=== PATIENT | male | born 1960 | race African-American/Black ===

== ENCOUNTER 2018-05-06 10:31 | Emergency (ER) | payer OTHER ==
[~2018-05-06] VITALS: Ht 185.4 cm; Wt 78.8 kg
[2018-05-06 10:36] VITALS: Ht 185.4 cm; Wt 78.8 kg
[2018-05-06] MEDS ORDERED: OLANZAPINE (ODT) 5 MG TAB ODT ONE (11:00)
[2018-05-06] MEDS ORDERED: QUET200T PO (11:16)
[2018-05-06] MEDS ORDERED: ARIP10TA12 PO (11:16)
--- NOTE | 2018-05-06 14:19 | ERD ---
ER Documentation Chief Complaint Chief Complaint FEELING DEPRESSED , HEARING VIOCES , HEADACHE , OUT OF MEDS , DENIES SI/HI HPI Patient is a 58-year-old male with schizophrenia who presents saying that he is hearing voices. He said that he has been hearing voices for years. He has not been taking his Seroquel or Abilify. He says "I should have stayed on them". He denies suicidal or homicidal ideation at this time. ROS All systems reviewed and are negative except as per history of present illness. Medications Home Meds Reported Medications Quetiapine Fumarate* (Seroquel*) 200 Mg Tablet, 200 MG PO HS, #30 TAB 05/06/18 Aripiprazole* (Abilify*) 10 Mg Tablet, 10 MG PO DAILY, #30 TAB 05/06/18 Allergies Allergies: Coded Allergies: No Known Allergy (Unverified , 05/06/18) PMhx/Soc History of Surgery: No Anesthesia Reaction: No Hx Neurological Disorder: No Hx Respiratory Disorders: No Hx Cardiac Disorders: No Hx Psychiatric Problems: No Hx Miscellaneous Medical Probl: Yes Hx Alcohol Use: No Hx Substance Use: No Hx Tobacco Use: No Smoking Status: Never smoker FmHx Family History: No diabetes Physical Exam Vitals Vital Signs Date Temp Pulse Resp B/P (MAP) Pulse Ox O2 O2 Flow FiO2 Time Delivery Rate 05/06/18 98.2 89 20 116/89 100 Room Air 13:30 (98) 05/06/18 98.2 88 18 116/70 99 Room Air 11:26 (85) 05/06/18 98.2 98 18 135/81 98 10:36 (99) Physical Exam Const: No acute distress Head: Atraumatic Eyes: Normal Conjunctiva ENT: Normal External Ears, Nose and Mouth. Neck: Full range of motion. No meningismus. Resp: Clear to auscultation bilaterally Cardio: Regular rate and rhythm, no murmurs Abd: Soft, non tender, non distended. Normal bowel sounds Skin: No petechiae or rashes Back: No midline or flank tenderness Ext: No cyanosis, or edema Neur: Awake and alert Psych: Patient reports hearing voices but denies suicidal or homicidal ideation, appears to have good insight Results 24 hrs Laboratory Tests Test 05/06/18 10:54 Urine Color YELLOW Urine Clarity CLEAR Urine pH 6.0 Urine Specific [place] 1.016 Urine Ketones NEGATIVE mg/dL Urine Nitrite NEGATIVE mg/dL Urine Bilirubin NEGATIVE mg/dL Urine Urobilinogen NEGATIVE mg/dL Urine Leukocyte Esterase NEGATIVE Lucy/ul Urine Hemoglobin NEGATIVE mg/dL Urine Glucose NEGATIVE mg/dL Urine Total Protein NEGATIVE mg/dl Urine Opiates Screen Negative Urine Barbiturates Negative Urine Amphetamines Screen Negative Urine Benzodiazepines Screen Negative Urine Cocaine Screen Negative Urine Cannabinoids Positive Current Medications Medications Dose Sig/Kiki Start Time Status Last (Trade) Ordered Route PRN Stop Time Admin Dose Reason Admin Olanzapine 5 mg ONCE ONCE 05/06/18 DC 05/06/18 (Zyprexa ODT 11:00 11:13 Zydis) 05/06/18 11:01 Procedures/MDM Patient is a 58-year-old male who presents with schizophrenia. The patient is hearing voices which appears to be normal for him. He denies suicidal or homicidal ideation. The patient was seen by Dr. De La Rosa from psychiatry and I am awaiting her note for final disposition. The patient may be able to be discharged home based on the fact that he does not have suicidal or homicidal ideation. Departure Diagnosis: Primary Impression: Schizophrenia Schizophrenia type: unspecified Qualified Codes: F20.9 - Schizophrenia, unspecified Condition: RISHI Yan MD May 06, 2018 14:19
--- NOTE | 2018-05-06 14:45 | PSY ---
Date/Time of Note Date/Time of Note DATE: 05/06/18 TIME: 14:41 Psychiatric Subjective Eval Consent Pt consented to telemedicine: Yes Subjective Evaluation Patient location: emergency Chief Complaint: FEELING DEPRESSED , HEARING VIOCES , HEADACHE , OUT OF MEDS , DENIES SI/HI History of present illness Pt is 58 yo homeless male with hx schizophrenia presents to ED c/o non command Ah and depressed mood; he reports sadness, feeling overwhelmed and asks if he can be hospitalzied because he doesn't like living in a jail. Denies IS or HI. Denies Vh. Off meds. Past psychiatric history pt has a hx prior inpt; no hx SA; was on seroquel and Abilify. Hospitalization: no Family History deneis Medical history Problems Medical Problems: (1) Schizophrenia Status: Acute Allergies: Coded Allergies: No Known Allergy (Unverified , 05/06/18) Substance Abuse Substance use: No known substance abuse Social History Marital status: single DPA/Conservatorship: No Occupation/Senior Living: on SSI $12 per month Psychiatric Objective Eval Review of Systems: Review of Systems: Not Applicable Physical Examination: Appetite: Adequate Energy: Adequate Mental Status Examination: Appearance: Disheveled Eye Contact: Good Psychomotor Activity: Normal Behavior: Cooperative Speech: Clear AFFECT: Appropriate Mood: Depressed Though Process: Linear Thought Content: Hallucinations Suicidal: No Homicidal: No On 72 hour hold: No Orientation: x4 Cognition: Alert Insight: Impared Judgement: Intact Laboratory Results Laboratory Tests Test 05/06/18 10:54 Urine Color YELLOW Urine Clarity CLEAR Urine pH 6.0 Urine Specific [place] 1.016 Urine Ketones NEGATIVE mg/dL Urine Nitrite NEGATIVE mg/dL Urine Bilirubin NEGATIVE mg/dL Urine Urobilinogen NEGATIVE mg/dL Urine Leukocyte Esterase NEGATIVE Lucy/ul Urine Hemoglobin NEGATIVE mg/dL Urine Glucose NEGATIVE mg/dL Urine Total Protein NEGATIVE mg/dl Urine Opiates Screen Negative Urine Barbiturates Negative Urine Amphetamines Screen Negative Urine Benzodiazepines Screen Negative Urine Cocaine Screen Negative Urine Cannabinoids Positive Assessment and Plan Assessment/Diagnosis Diagnosis Schizoaffective d/o Recommendation/Plan Medication Management Please rx Seroquel 100 mg poqhs, Abilify 5 mg po qam #30 Discharge Disposition: Community (home) Legal Status: Voluntary Other no dts, no dto, no gd; please SW consult re: placement. Please refer to outpt mental health. YUMIKO RASHID MD May 06, 2018 14:45
[2018-05-06] MEDS ORDERED: ARIP5TAB14 PO (15:40)
[2018-05-06] MEDS ORDERED: QUET100T PO (15:40)
[2018-05-06 15:58] VITALS: BP 118/86; PULSE 85; RESP 16
== END 2018-05-06 16:15 | disposition home or self-care (01) ==
LOC: E/R 10:31
DX: F20.9 Schizophrenia, unspecified (principal); R40.2142 Coma scale, eyes open, spontaneous, at arrival to emergency department; R40.2252 Coma scale, best verbal response, oriented, at arrival to emergency department; R40.2362 Coma scale, best motor response, obeys commands, at arrival to emergency department
CPT/HCPCS: 80307; 81003; Z7502; Z7610; 99283